=== PATIENT | male | born 1965 | race African-American/Black ===

== ENCOUNTER 2020-08-14 04:06 | Emergency (ER) | payer BC ==
[~2020-08-14] VITALS: Ht 175.3 cm; Wt 89.4 kg
[2020-08-14 04:07] VITALS: BP 146/100
[2020-08-14] MEDS ORDERED: LISINOPRIL20 MG PO (04:11)
[2020-08-14] MEDS ORDERED: MUPIROCIN1 GM TOP (05:26)
== END 2020-08-14 05:42 | disposition home or self-care (01) ==
LOC: ER 04:06
DX: L03.011 Cellulitis of right finger (principal); I10 Essential (primary) hypertension; Z79.899 Other long term (current) drug therapy

== ENCOUNTER 2021-04-01 19:00 | Inpatient (IN) | payer BC ==
[~2021-04-01] VITALS: Ht 175.3 cm; Wt 92.1 kg
[2021-04-01 19:00] VITALS: BP 133/82
[~2021-04-01 19:00] MED LIST: LISINOPRIL20 MG PO; MUPIROCIN1 GM TOP
[2021-04-01 19:31] LABS: ABSOLUTE NEUTROPHILS 4.3 thou/uL (1.4-8.2); MCHC 34.9 g/dL (28.0-37.0); WBC 5.7 thou/uL (4.0-11.0)
[2021-04-01 19:33] LABS: BASOPHILS 0.6 % (0.0-2.0); HEMATOCRIT 40.9 % (42.0-52.0); HEMOGLOBIN 14.3 gm/dL (14.0-18.0); LYMPHOCYTES 11.1 % (24.0-44.0); MCH 29.3 pg (26.0-34.0); MCV 83.8 fL (80.0-100.0); MONOCYTES 12.5 % (1.0-8.0); PLATELET COUNT 244 thou/uL (150-400); POLYS 75.8 % (36.0-66.0); RBC 4.88 mil/uL (4.50-6.00); RDW 12.4 % (10.5-14.5)
[2021-04-01 19:52] LABS: ANION GAP 14 mmol/L (7-16); BUN 21 mg/dL (7-18); CALCIUM 8.7 mg/dL (8.5-10.1); CHLORIDE 100 mmol/L (98-107); CO2 25 mmol/L (21-32); GLUCOSE 119 mg/dL (74-106); POTASSIUM 3.5 mmol/L (3.5-5.1); SODIUM 139 mmol/L (136-145)
[2021-04-01 20:00] LABS: ALBUMIN 4.2 g/dL (3.4-5.0); SGOT 35 U/L (15-37); SGPT 37 U/L (16-63); TOTAL BILIRUBIN 0.8 mg/dL (0.2-1.0); TOTAL PROTEIN 8.2 g/dL (6.4-8.2); TROPONIN-I <0.06 ng/mL (<0.06)
[2021-04-01 20:44] VITALS: BP 121/76
[2021-04-01 21:42] VITALS: BP 126/77
--- NOTE | 2021-04-01 22:59 | NUR ---
ADMIT FROM ED. TESTED POSITIVE FOR COVID 3 DAYS AGO. REPORTING N/V SOA. PTS CAME TO ED WITH PT BUT WAS DCD HOME. PT HAD R/A O2 SAT 80'S%. PLACED ON 2L AT 96%. PT LUNGS CLEAR. PT HAS DRY COUGH INTERMITTENT. PT REPORTING CONTINUED N/V, NOT ABLE TO KEEP FLUIDS OR FOOD DOWN. INDEPENDENT WITH ADLS. PT HAS URINAL AT BEDSIDE DUE TO SOA. PT VERBALIZED UNDERSTANDING TO CALL FOR ASSISTANCE. IVF INTACT. PT HAS NEVER BEEN INPT IN A HOSPITAL PRIOR TO THIS STAY. PT HAS NOT RECEIVED THE COVID VACCINE.
[2021-04-02 05:31] VITALS: BP 135/84
[2021-04-02 07:54] VITALS: BP 122/81
[2021-04-02 11:00] LABS: ABSOLUTE NEUTROPHILS 3.8 thou/uL (1.4-8.2); RBC 4.75 mil/uL (4.50-6.00); WBC 4.7 thou/uL (4.0-11.0)
[2021-04-02 11:02] LABS: BASOPHILS 0.3 % (0.0-2.0); HEMATOCRIT 39.9 % (42.0-52.0); HEMOGLOBIN 13.9 gm/dL (14.0-18.0); LYMPHOCYTES 11.8 % (24.0-44.0); MCH 29.2 pg (26.0-34.0); MCHC 34.7 g/dL (28.0-37.0); MONOCYTES 8.8 % (1.0-8.0); PLATELET COUNT 231 thou/uL (150-400); POLYS 79.1 % (36.0-66.0); RDW 12.4 % (10.5-14.5)
[2021-04-02 11:26] LABS: ALBUMIN 3.4 g/dL (3.4-5.0); CALCIUM 8.3 mg/dL (8.5-10.1); CREATININE 1.6 mg/dL (0.7-1.3); MAGNESIUM 2.1 mg/dL (1.8-2.4); TOTAL BILIRUBIN 0.6 mg/dL (0.2-1.0); TOTAL PROTEIN 7.3 g/dL (6.4-8.2)
[2021-04-02 15:28] VITALS: BP 119/86
--- NOTE | 2021-04-02 19:25 | NUR ---
RN ASSUMED PT'S CARE AT 0700-1900PM, PT IS A&OX4, PT IS ON ISOLATION FOR POSITIVE COVID, PT'S VS ARE STABLE, PT IS CONTINUING MEDICATIONS TO TREAT COVID, PT IS ON O2 2L/MIN/NC, PT'S SOB AND N/V HAVE IMPROVED , PT WALKS TO BATH ROOM WITHOUT ASSIST,
[2021-04-02 19:33] VITALS: BP 123/84
[2021-04-03 03:42] VITALS: BP 129/97
--- NOTE | 2021-04-03 04:02 | NUR ---
PROGRESS PT A/O X4. LUNGS CLEAR ON ROOM AIR DENIES SOB. UP AD GENIE GAIT STEADY VOIDING PER ELISHA. REPORTS BM THIS AM. IV ANTIBIOTICS ADMINISTERED ORDERED, NS INFUSING AT 70CC/HR. DENIES PAIN. REFUSED LOVENOX INJECTION AND SCD'S EDUCATED ON RISK OF DVT AND PE'S WITH DIAGNOSIS OF COVID PT STILL REFUSED. TELEMETRY INTACT READING SR IN TO 70'S AND 80'S. CONTINUE POC.
[2021-04-03 06:03] LABS: BASOPHILS 0.2 % (0.0-2.0); HEMOGLOBIN 13.2 gm/dL (14.0-18.0); PLATELET COUNT 231 thou/uL (150-400); POLYS 68.4 % (36.0-66.0); RDW 12.4 % (10.5-14.5)
[2021-04-03 06:05] LABS: LYMPHOCYTES 21.4 % (24.0-44.0); MCH 29.2 pg (26.0-34.0); MCHC 34.8 g/dL (28.0-37.0); MCV 83.8 fL (80.0-100.0); RBC 4.53 mil/uL (4.50-6.00); WBC 4.3 thou/uL (4.0-11.0)
[2021-04-03 06:25] LABS: ALBUMIN 3.2 g/dL (3.4-5.0); ANION GAP 10 mmol/L (7-16); BUN 22 mg/dL (7-18); CALCIUM 8.2 mg/dL (8.5-10.1); CHLORIDE 107 mmol/L (98-107); CO2 25 mmol/L (21-32); CREATININE 1.2 mg/dL (0.7-1.3); DIRECT BILIRUBIN < 0.1 mg/dL (<0.1-0.2); GLUCOSE 111 mg/dL (74-106); MAGNESIUM 2.2 mg/dL (1.8-2.4); PHOSPHORUS 3.1 mg/dL (2.6-4.7); POTASSIUM 4.3 mmol/L (3.5-5.1); SGOT 33 U/L (15-37); SGPT 34 U/L (16-63); SODIUM 142 mmol/L (136-145); TOTAL BILIRUBIN 0.4 mg/dL (0.2-1.0); TOTAL PROTEIN 6.8 g/dL (6.4-8.2)
--- NOTE | 2021-04-03 06:47 | HC ---
[place] [address] CONSULTATION Name: BEVERLY HANKS Room #: [facility] IN M.R.#: [id number] Admission: 04/01/21 Attend Phys: Solange Roque Discharge: Date of : 65 Report #: [id number] THIS REPORT FOR: cc: JITENDRA VANCE Physician not on staff Joshua Babb MD ~ DATE OF SERVICE: 04/02/2021 INFECTIOUS DISEASE CONSULTATION ATTENDING PHYSICIAN: Dr. Roque. REASON FOR EVALUATION: COVID-19 infection, complicated by respiratory failure. HISTORY OF PRESENT ILLNESS: Chart reviewed. The patient examined. This is a 55-year-old gentleman with history of hypertension who was present in the Emergency Room with a several-day history of worsening discomfort, generalized arthralgias, myalgias, nausea, emesis, poor p.o. intake. Also had some fevers, was evaluated, tested positive for COVID due to progressive difficulty, although he denies shortness of breath, and x-ray was fairly unremarkable. He was showing evidence of hypoxia. He has now been maintained on supplemental oxygen 2 liters per nasal cannula. He was empirically started on therapy with dexamethasone, zinc, and ascorbic acid. ALLERGIES: None known. CURRENT MEDICATIONS: Include enoxaparin, ascorbic acid, dexamethasone, famotidine, zinc, albuterol, acetaminophen, ondansetron as needed. PAST MEDICAL HISTORY: Hypertension. SOCIAL HISTORY: Nonsmoker, no ethanol, no illicit drug use. FAMILY HISTORY: Noncontributory. REVIEW OF SYSTEMS: Otherwise, unremarkable. PHYSICAL EXAMINATION: GENERAL: He is alert, appears to be in moderate distress, generally well nourished. He is lucid. VITAL SIGNS: Temperature 98.4, T-max 100.8, pulse 77, respirations 16, blood pressure 122/81. SKIN: Warm, dry, no rashes. HEENT: Normocephalic. Extraocular muscles intact. NECK: Supple. LUNGS: Few scattered crackles primarily at the bases. [address] [place] [address] CONSULTATION Name: BEVERLY HANKS Room #: [facility] IN M.R.#: [id number] Admission: 04/01/21 Attend Phys: Solange Roque Discharge: Date of : 65 Report #: [id number] HEART: Regular. I do not appreciate a murmur. ABDOMEN: Mildly distended, somewhat firm, nontender. EXTREMITIES: No cyanosis. GENITOURINARY AND RECTAL: Deferred. LABORATORY DATA: Blood cultures sterile thus far. Sed rate of 24. Ferritin elevated at 497. Positive coronavirus testing. Electrolytes: Sodium 139, potassium 3.5, chloride 100, bicarbonate 25, anion gap of 14, BUN and creatinine 21 and 2.0, glucose of 119, AST of 35, ALT of 37, albumin 4.2. Estimated GFR of 42. ProBNP is 77. Lactic acid 0.8. CBC: White count 5.7, H and H 14.3 and 40.9, platelets of 244. Procalcitonin 0.17. ASSESSMENT AND PLAN: COVID-19 infection, complicated by pneumonitis, respiratory failure. Continue therapy with initiated remdesivir as well as continue corticosteroids and vitamins, although he does not have significant risk factors for worsening disease. Postop course certainly is concerning, may need additional imaging. Continue supportive care with supplemental oxygen. <ELECTRONICALLY SIGNED> By: Joshua Babb MD 04/03/21 [id number] Joshua Babb MD /nt
[2021-04-03 08:27] VITALS: BP 144/100
[2021-04-03 09:00] VITALS: BP 118/71
[2021-04-03 10:28] VITALS: BP 126/89
--- NOTE | 2021-04-03 16:21 | NUR ---
INITIAL ASSESSMENT: Received consult. SW reviewed chart and spoke with nursing and attending physician. Pt was admitted from home due to acute respiratory failure due to COVID. Pt placed in Enhanced Isolation. Pt is afebrile and not requiring O2. Pt is on IV abx and has started Remdesivir and Ivermectin. SW spoke with pt via phone. Introduced role of SW. Pt is alert/orientated and reports he lives at home with his . Prior to admission, pt was independent with ADLs. No use of DME. No hx of services or post-acute placement. Pt's PCP is Dr. Sulaiman Munoz at [facility]. Plan is for pt to discharge home when medically stable. SW is following to assist as needed with discharge planning.
[2021-04-03 17:28] VITALS: BP 118/71
--- NOTE | 2021-04-03 18:42 | NUR ---
RN ASSUMED PT'S CARE AT 0700AM, PT IS A&OX4, PT'S SOB HAS IMPROVED, PT IS ON O2 1L/MIN/NC, PT IS TOLERATIVE TREATING COVID IV MEDICATION REMDESIVIR, WE ENCOUAGE PT TO WALK IN HIS ROOM , PT DENIES PAIN BY THIS TIME.
[2021-04-04 03:00] LABS: HEMATOCRIT 37.2 % (42.0-52.0); MCH 29.4 pg (26.0-34.0); MCV 84.2 fL (80.0-100.0); RBC 4.42 mil/uL (4.50-6.00); RDW 12.4 % (10.5-14.5); WBC 4.6 thou/uL (4.0-11.0)
[2021-04-04 03:51] VITALS: BP 129/86
[2021-04-04 03:59] LABS: ALBUMIN 3.3 g/dL (3.4-5.0); CALCIUM 7.8 mg/dL (8.5-10.1); CREATININE 1.2 mg/dL (0.7-1.3); DIRECT BILIRUBIN 0.1 mg/dL (<0.1-0.2); PHOSPHORUS 3.5 mg/dL (2.5-4.9); POTASSIUM 4.2 mmol/L (3.5-5.1); TOTAL BILIRUBIN 0.5 mg/dL (0.2-1.0); TOTAL PROTEIN 6.3 g/dL (6.4-8.2)
--- NOTE | 2021-04-04 06:40 | NUR ---
PROGRESS PT A/O X4 LUNGS CLEAR BUT DIMINISHED PT HAS A DRY INFREQUENT COUGH THIS SHIFT, ON ROOM AIR SATS IN UPPER 90'S. IVF'S INFUSING INTO LH ORDERED PT VOIDING PER URINAL OR TOLIET. UP AD GENIE GAIT STEADY. DENIES PAIN, REFUSED ALL MEDS STATED THEY GIVE HIM NAUSEA AND A STOMACHACHE. PT HOPES TO DISCHARGE HOME TODAY
[2021-04-04 07:41] VITALS: BP 130/83
--- NOTE | 2021-04-04 11:33 | NUR ---
DISCHARGE NOTE: SW reviewed chart and spoke with nursing, ID and attending physician. Pt remains in Enhanced Isolation due to COVID. Pt is medically stable for discharge home today. Pt is afebrile and on room air. SW spoke with pt via phone to discuss discharge plan. Pt denies having any discharge needs. Pt states he has transportation home. No additional SW needs identified at this time, but is available to assist should needs arise.
[2021-04-04] MEDS ORDERED: CEFDINIR300 MG PO (14:01)
[2021-04-04] MEDS ORDERED: PREDNISONE 10 M10 M1 PO (14:01)
[2021-04-04] MEDS ORDERED: PROAIR HFA8.5 GM INH (14:02)
[2021-04-04 15:06] VITALS: BP 130/83
[2021-04-04 16:21] VITALS: BP 130/83
--- NOTE | 2021-04-04 18:08 | NUR ---
THIS RN REC'D CALL FROM PT . PT HAD PROVIDED INCORRECT PHARMACY. THIS RN WAS ABLE TO CALL CORRECT PHARMACY AND SEND MEDICATIONS TO LOCATION. THIS RN PLACED CALL TO TO INFORM. SHE VERBALIZED UNDERSTANDING.
== END 2021-04-04 16:34 | disposition home or self-care (01) | DRG 177 ==
LOC: ER 19:00 → 3W 20:30 → EROBS 20:30 → 3W 21:36
PROVIDERS: Hospitalist; Nurse Practitioner Family; Specialist; ADMIT Internal Medicine; ATTEND Internal Medicine
PROC: XW033E5 Introduction of Remdesivir Anti-infective into Peripheral Vein, Percutaneous Approach, New Technology Group 5 (ICD-10-PCS; principal; 2021-04-02)
DX: U07.1 COVID-19 (principal); J96.01 Acute respiratory failure with hypoxia; J12.82 Pneumonia due to coronavirus disease 2019; N17.9 Acute kidney failure, unspecified; I10 Essential (primary) hypertension; Z83.3 Family history of diabetes mellitus
CPT/HCPCS: 10879